=== PATIENT | female | born 1970 | race Two or more races ===

== ENCOUNTER 2020-04-07 09:36 | Outpatient (CLI) | payer OTHER | END 2020-04-07 09:42 | disposition home or self-care (01) | LOC: SONOGRAMA 09:36 | PROVIDERS: ATTEND Pathology Anatomic Pathology & Clinical Pathology | DX: E04.2 Nontoxic multinodular goiter (principal) ==

== ENCOUNTER 2023-04-25 11:17 | Day surgery (SDC) | payer OTHER ==
[~2023-04-25 11:17] MED LIST: CRESTOR10 MG PO; KLONOPIN 1MG; WELLBUTRIN SR150 MG PO
[2023-04-25] MEDS ORDERED: CEFAZOLIN SODIUM 1,000 MG VIAL ONE (14:43)
[2023-04-25] MEDS ORDERED: CEFAZOLIN SODIUM 1,000 MG VIAL IV ONE (17:15)
[2023-04-25] MEDS ORDERED: POVIDONE-IODINE 118 ML BOTT TOP ONE (17:15)
[2023-04-25] MEDS ORDERED: ZITHROMAX500 MG PO (17:29)
[2023-04-25] MEDS ORDERED: RINGERS SOLUTION,LACTATED 1,000 ML IV SCH (17:30)
== END 2023-04-25 20:05 | disposition home or self-care (01) ==
LOC: CIR.AMB 11:17
PROVIDERS: ATTEND Obstetrics & Gynecology
DX: N84.0 Polyp of corpus uteri (principal); N95.0 Postmenopausal bleeding; Z88.6 Allergy status to analgesic agent

== ENCOUNTER 2024-05-21 10:54 | Outpatient (CLI) | payer OTHER ==
[~2024-05-21 10:54] MED LIST changes: +ZITHROMAX500 MG PO
== END 2024-05-21 11:04 | disposition home or self-care (01) ==
LOC: TOM 10:54
PROVIDERS: ATTEND General Practice
DX: R91.1 Solitary pulmonary nodule (principal)

== ENCOUNTER 2024-08-24 11:13 | Outpatient (CLI) | payer OTHER | END 2024-08-24 11:17 | disposition home or self-care (01) | LOC: SONOGRAMA 11:13 | PROVIDERS: ATTEND Internal Medicine | DX: D35.1 Benign neoplasm of parathyroid gland (principal) ==

== ENCOUNTER 2024-09-01 07:08 | Outpatient (CLI) | payer OTHER | END 2024-09-01 07:09 | disposition home or self-care (01) | LOC: NUCLEAR 07:08 | PROVIDERS: ATTEND Internal Medicine | DX: E21.0 Primary hyperparathyroidism (principal) ==

== ENCOUNTER 2024-12-10 09:01 | Outpatient (CLI) | payer OTHER | END 2024-12-10 09:02 | disposition home or self-care (01) | LOC: NUCLEAR 09:01 | PROVIDERS: ATTEND Internal Medicine Endocrinology, Diabetes & Metabolism | DX: M85.80 Other specified disorders of bone density and structure, unspecified site (principal); M81.0 Age-related osteoporosis without current pathological fracture ==

== ENCOUNTER 2024-12-21 09:40 | Outpatient (CLI) | payer OTHER | END 2024-12-21 09:42 | disposition home or self-care (01) | LOC: SONOGRAMA 09:40 | PROVIDERS: ATTEND Pathology Anatomic Pathology | DX: D34 Benign neoplasm of thyroid gland (principal); E06.3 Autoimmune thyroiditis; E07.89 Other specified disorders of thyroid; E04.2 Nontoxic multinodular goiter ==

== ENCOUNTER 2025-02-15 11:18 | Outpatient (CLI) | payer OTHER | END 2025-02-15 11:22 | disposition home or self-care (01) | LOC: RAD 11:18 | PROVIDERS: ATTEND General Practice | DX: M25.521 Pain in right elbow (principal) ==